=== PATIENT | male | born 1990 | race Caucasian/White ===

== ENCOUNTER 2016-05-16 12:38 | Outpatient (CLI) | payer MEDICAID | END 2016-05-16 12:39 | disposition critical access hospital (66) | DX: M54.2 Cervicalgia (principal); Y04.2XXA Assault by strike against or bumped into by another person, initial encounter | CPT/HCPCS: A0425; A0429 ==

== ENCOUNTER 2016-05-16 12:57 | Emergency (ER) | payer MEDICAID ==
[2016-05-16] MEDS ORDERED: IBUPROFEN 800 MG TABLET PO STA (13:36)
[2016-05-16] MEDS ORDERED: IBUPROFEN 800 MG TABLET PO ONE (13:56)
== END 2016-05-16 14:50 | disposition home or self-care (01) ==
DX: S16.1XXA Strain of muscle, fascia and tendon at neck level, initial encounter (principal); Y04.2XXA Assault by strike against or bumped into by another person, initial encounter; Y93.89 Activity, other specified
CPT/HCPCS: 72040; 99283; A9270

== ENCOUNTER 2018-07-16 10:12 | Outpatient (CLI) | payer OTHER | END 2018-07-16 10:13 | disposition critical access hospital (66) | LOC: EMS 10:12 | PROVIDERS: ATTEND Surgery | DX: S51.812A Laceration without foreign body of left forearm, initial encounter (principal); W27.8XXA Contact with other nonpowered hand tool, initial encounter; Y92.59 Other trade areas as the place of occurrence of the external cause | CPT/HCPCS: A0425; A0429 ==

== ENCOUNTER 2018-07-16 10:48 | Emergency (ER) | payer MEDICAID, OTHER ==
[2018-07-16 10:58] VITALS: BP 129/98
[2018-07-16] MEDS ORDERED: TETANUS/DIPHTHERIA/PERTUSSIS 0.5 ML SYRINGE IM ONE (11:00)
[2018-07-16] MEDS ORDERED: LIDOCAINE MPF 2%-EPI 1:200000 20 ML VIAL SUBQ STA (11:01)
[2018-07-16] MEDS ORDERED: BACITRACIN OINT TOP STA (11:51)
--- NOTE | 2018-07-16 11:53 | ED Physician Documentation ---
PD HPI UPPER EXT INJURY - Stated complaint Stated Complaint: ARM LAC - Chief complaint Chief Complaint: Laceration - History obtained from History obtained from: Patient - History of Present Illness Location: Left, Forearm Type of injury: Laceration Where injury occurred: Work Timing - onset: Today Timing - duration: Minutes Timing - details: Abrupt onset Pain level max: 3 Pain level now: 3 Improved by: Nothing Worsened by: Palpating Associated symptoms: No: Weakness, Numbness, Tingling, Swelling, Discolored Contributing factors: Work related. 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 Review of Systems Ten Systems: 10 systems reviewed and negative Constitutional: denies: Fever, Chills Cardiac: denies: Chest pain / pressure Respiratory: denies: Dyspnea GI: denies: Abdominal Pain, Nausea, Vomiting Skin: reports: Laceration (s) Musculoskeletal: denies: Neck pain, Back pain, Extremity pain, Extremity swelling, Joint swelling Neurologic: denies: Focal weakness, Numbness PD PAST MEDICAL HISTORY - Past Medical History Past Medical History: Yes Respiratory: Asthma - Past Surgical History Past Surgical History: No - Present Medications Home Medications: Ambulatory Orders Medication Instructions Recorded Confirmed Albuterol [Ventolin Hfa] 1 puffs INH Q6H PRN 05/01/14 01/24/16 Naproxen [Naprosyn] 500 mg PO BID PRN #30 tablet 05/16/16 - Allergies Allergies/Adverse Reactions: Allergies Allergy/AdvReac Type Severity Reaction Status Date / Time No Known Drug Allergies Allergy Verified 12/30/13 14:41 - Social History Does the pt smoke?: No Smoking Status: Never smoker Does the pt drink ETOH?: Yes Does the pt have substance abuse?: Yes - Immunizations Immunizations are current?: Yes - POLST Patient has POLST: No PD ED PE NORMAL - Vitals Vital signs reviewed: Yes - General General: Alert and oriented X 3 - HEENT HEENT: Atraumatic - Cardiac Cardiac: RRR - Respiratory Respiratory: No respiratory distress - Abdomen Abdomen: Soft, Non distended - Male Male : Deferred - Rectal Rectal: Deferred - Derm Derm: Normal color, Warm and dry, Other (left forearm laceration on volar surface, 5cm in size, involving subcutaneous tissue, bleeding actively) - Extremities Extremities: No deformity, No tenderness to palpate, Normal ROM s pain, No edema, Other (left forearm laceration, extremity is neurovascularly intact ) - Neuro Neuro: Alert and oriented X 3 Eye Opening: Spontaneous Motor: Obeys Commands Verbal: Oriented GCS Score: 15 - Psych Psych: Normal mood, Normal affect Results - Vitals Vitals: Vital Signs - 24 hr 07/16/18 10:54 Temperature 36.8 C Heart Rate 75 Respiratory 18 Rate Blood Pressure 129/98 H O2 Saturation 99 Oxygen O2 Source Room air Procedures - Laceration (location) Upper extremity left Wound type: Linear, Into subcut fat Neurovascular status: Sensory intact, Motor intact, Vascular intact Tendon involvement: Tendon intact Anesthesia: Lidocaine 1% with epi Wound Preparation: Irrigated copiously NS Deep layer closure: Vicryl, size #-0 - enter number (4-0), # sutures - enter number (2) Skin layer closure: Nylon, Size #-0 - enter number (4-0), Sutures - enter # (three horizonal mattress sutures and 3 interrupted sutures) Other: Patient tolerated well, No complications Complexity: Intermediate PD MEDICAL DECISION MAKING - ED course Complexity details: re-evaluated patient, considered differential, d/w patient ED course: DDx - skin laceration, tendon injury, vascular injury, nerve injury. Pt with L forearm laceration, accidental, repaired here with multilayer closure. Pt stable, neurovascularly intact in LUE. Dressed wound and pt given instructions for f/u and suture removal as well as for signs of infection. Departure - Departure Disposition: 01 Home, Self Care Clinical Impression: Laceration Laceration of forearm without complication Qualifiers: Encounter type: initial encounter Laterality: left Qualified Code(s): S51.812A - Laceration without foreign body of left forearm, initial encounter Condition: Stable Record reviewed to determine appropriate education?: Yes Instructions: ED Laceration Ext Sutr Stap Tape Follow-Up: your, doctor or the ED [Other] - 07/29/18 Comments: Return within 10 to 14 days for suture removal. Apply bacitracin 2 times a day Keep clean with soap and water. Cover when at work. Forms: Activity restrictions
== END 2018-07-16 12:01 | disposition home or self-care (01) ==
LOC: EDBD → EDUNIT# → ED 10:48
DX: S51.812A Laceration without foreign body of left forearm, initial encounter (principal); W27.8XXA Contact with other nonpowered hand tool, initial encounter; Y93.89 Activity, other specified; Y99.0 Civilian activity done for income or pay
CPT/HCPCS: 1040M; 12032; 90471; 90715; 99282; 99283; 96372